=== PATIENT | male | born 2005 | race African-American/Black ===

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

== ENCOUNTER 2023-11-20 23:46 | Emergency (ER) | payer OTHER, SELFPAY | END 2023-11-21 01:25 | disposition home or self-care (01) | LOC: CSHERS 23:46 | DX: S01.511A Laceration without foreign body of lip, initial encounter (principal); W22.8XXA Striking against or struck by other objects, initial encounter | CPT/HCPCS: 12011; 99282 ==

== ENCOUNTER 2023-12-03 13:04 | Emergency (ER) | payer SELFPAY | END 2023-12-03 13:38 | disposition home or self-care (01) | LOC: CSHERS 13:04 | DX: S01.511D Laceration without foreign body of lip, subsequent encounter (principal); W18.30XD Fall on same level, unspecified, subsequent encounter ==

== ENCOUNTER 2024-10-10 10:34 | Emergency (ER) | payer SELFPAY ==
[2024-10-10 12:15] LABS: Bilirubin Neg (Negative); Blood, Urine Negative (Negative); Clarity Clear (Clear); Glucose, Urine (Dipstick) Normal (Negative); Ketone, Urine 5 mg/dL (Negative); Leukocyte Negative (Negative); Nitrite Negative (Negative); Protein, Urine (Dipstick) 30 mg/dl (Neg-Trace); Specific Gravity, Urine 1.025 (1.005-1.030)
[2024-10-10 14:00] LABS: RBC/HPF None Seen HPF (0-3); Squamous Epithelial 0-3 HPF (0-3); WBC/HPF None Seen HPF (0-3)
[2024-10-10 14:01] LABS: Bacteria/HPF None Seen HPF (None Seen)
[2024-10-11 05:15] LABS: GC N.gonorrhoeae PCR,UrineVOID Not Detected (NotDetected)
== END 2024-10-10 12:00 | disposition home or self-care (01) ==
LOC: CSHERS 10:34
DX: R30.0 Dysuria (principal)
CPT/HCPCS: 81003; 81015; 87591; 99283

== ENCOUNTER 2025-01-13 00:09 | Emergency (ER) | payer BC, SELFPAY ==
[2025-01-14 10:56] LABS: Chlam.trachomatis by PCR,Urine Not Detected (NotDetected); GC N.gonorrhoeae PCR,UrineVOID Not Detected (NotDetected)
== END 2025-01-13 00:40 | disposition home or self-care (01) ==
LOC: CSHERS 00:09
DX: Z20.2 Contact with and (suspected) exposure to infections with a predominantly sexual mode of transmission (principal)
CPT/HCPCS: 87491; 87591; 99283